=== PATIENT | male | born 1965 | race Caucasian/White ===

== ENCOUNTER 2019-02-07 09:36 | Emergency (ER) | payer MEDICAID ==
[~2019-02-07] VITALS: Ht 160 cm; Wt 78.0 kg
[2019-02-07 09:55] VITALS: Ht 160 cm; Wt 78.0 kg
[2019-02-07 14:16] VITALS: BP 120/68
== END 2019-02-07 14:16 | disposition home or self-care (01) ==
LOC: ED 09:36
DX: J10.1 Influenza due to other identified influenza virus with other respiratory manifestations (principal); J98.01 Acute bronchospasm; Z98.890 Other specified postprocedural states
CPT/HCPCS: 87804

== ENCOUNTER 2019-09-18 13:06 | Emergency (ER) | payer MEDICAID ==
[~2019-09-18] VITALS: Ht 157.5 cm; Wt 77.1 kg
[2019-09-18 13:10] VITALS: Ht 157.5 cm; Wt 77.1 kg
[2019-09-18 14:05] VITALS: BP 110/74
== END 2019-09-18 14:15 | disposition home or self-care (01) ==
LOC: ED 13:06
DX: U07.1 COVID-19 (principal)
CPT/HCPCS: U0003-CS

== ENCOUNTER 2019-11-03 11:53 | Emergency (ER) | payer MEDICAID ==
[~2019-11-03] VITALS: Ht 157.5 cm; Wt 75.7 kg
[~2019-11-03 11:53] MED LIST: DECADRON6 MG PO; LIPI10 PO; XARELTO15 M1 PO
[2019-11-03 12:47] VITALS: Ht 157.5 cm; Wt 75.7 kg
== END 2019-11-03 15:21 | disposition home or self-care (01) ==
LOC: ED 11:53
DX: M54.6 Pain in thoracic spine (principal); Z98.890 Other specified postprocedural states
CPT/HCPCS: Q0092